=== PATIENT | female | born 1935 | race Caucasian/White ===

== ENCOUNTER → 2021-03-14 10:27 | Outpatient (REF) | payer MEDICARE, SELFPAY | LOC: ANHLAB 10:27 | PROVIDERS: PCP Internal Medicine; Visit Provider Nurse Practitioner | DX: D49.2 Neoplasm of unspecified behavior of bone, soft tissue, and skin (principal) | CPT/HCPCS: 88305 ==

== ENCOUNTER → 2021-05-01 07:29 | Outpatient (REF) | payer MEDICARE, SELFPAY | LOC: ANHLAB 07:29 | PROVIDERS: PCP Internal Medicine; Visit Provider Nurse Practitioner | DX: C44.42 Squamous cell carcinoma of skin of scalp and neck (principal) | CPT/HCPCS: 88305; 88331 ==

== ENCOUNTER 2022-01-30 07:00 | Outpatient (NON) | payer MEDICARE, SELFPAY | END 2022-01-30 07:01 | disposition home or self-care (01) | PROVIDERS: PCP Internal Medicine; Visit Provider Nurse Practitioner | DX: C44.42 Squamous cell carcinoma of skin of scalp and neck (principal) | CPT/HCPCS: 88305; 88342 ==

== ENCOUNTER 2022-02-26 10:02 | Outpatient (NON) | payer MEDICARE, SELFPAY | END 2022-02-26 10:03 | disposition home or self-care (01) | PROVIDERS: PCP Nurse Practitioner; Visit Provider Nurse Practitioner | DX: C44.42 Squamous cell carcinoma of skin of scalp and neck (principal) | CPT/HCPCS: 88305; 88331 ==

== ENCOUNTER 2022-05-24 18:28 | Emergency (ER) | payer MEDICARE, SELFPAY ==
--- NOTE | ~2022-05-24 | CT_ITS ---
Non-contrast Head CT History: Status post fall Technique: Axial non-contrast imaging of the brain was performed. Dose reduction technique was used on this scan by utilizing automated exposure control and iterative reconstruction technique. The dose -length product (DLP) was 605.33 mGy-cm. Findings: There is no evidence of intracranial hemorrhage, mass lesion, or acute infarct. Old left o ccipital lobe infarct noted. The ventricles and subarachnoid spaces are normal in size. The calvari um appears normal. The visualized paranasal sinuses and mastoid air cells are clear. Impression: No acute abnormality seen. Chronic left occipital lobe infarct. Reviewed, dictated and finalized at location . R INSPECTION MECHANIC Impression: No acute abnormality seen. Chronic left occipital lobe infarct.
--- NOTE | ~2022-05-24 | XR_ITS ---
EXAMINATION: XR knee LT min 4V DATE: 05/24/2022 20:30 INDICATION: Left knee pain TECHNIQUE: Four views of the left knee were obtained. COMPARISON: None. FINDINGS: Alignment is normal. No fracture or osteochondral lesion. There is [id number] tricomp artmental osteoarthritis of the knee. No joint effusion/synovitis. Soft tissues are unremarkable. IMPRESSION: 1. No acute osseous abnormality. Reviewed, dictated and finalized at location F. ANCE AND CONTROL SYSTEM ENGINEER
--- NOTE | ~2022-05-24 | XR_ITS ---
EXAMINATION: XR elbow LT 2V INDICATION: Left elbow pain TECHNIQUE: Two views of the left elbow are obtained. COMPARISON: None available FINDINGS: No fracture, dislocation, or subluxation. The bones, soft tissues, and joint spaces are nor mal. IMPRESSION: 1. No acute osseous abnormality. Reviewed, dictated and finalized at location F. INSPECTOR AND CENTER MARKER
--- NOTE | ~2022-05-24 | XR_ITS ---
EXAMINATION: XR knee RT min 4V DATE: 05/24/2022 20:30 INDICATION: Right knee pain TECHNIQUE: Four views of the right knee were obtained. COMPARISON: None. FINDINGS: Alignment is normal. No fracture or osteochondral lesion. There is tricompartmental osteoar thritis of the knee, moderate in the patellofemoral and medial compartments. No joint effusion/synovi tis. Soft tissues are unremarkable. IMPRESSION: 1. No acute osseous abnormality. Reviewed, dictated and finalized at location F. TH CONTROL TESTER
--- NOTE | ~2022-05-24 | XR_ITS ---
EXAMINATION: XR shoulder LT min 2V INDICATION: Left shoulder pain TECHNIQUE: Three views of the left shoulder are submitted. COMPARISON: None FINDINGS: Normal alignment. No fracture. There is mild osteoarthritis of the glenohumeral and acromio clavicular joints. Soft tissues are unremarkable. IMPRESSION: 1. No acute osseous abnormality. Reviewed, dictated and finalized at location F. OWN MACHINE OPERATOR
--- NOTE | ~2022-05-24 | CT_ITS ---
Noncontrast CT scan of the thoracic and lumbar spine CLINICAL HISTORY: Status post fall TECHNIQUE: Axial noncontrast imaging of the thoracic and lumbar spine was performed. Sagittal and cor onal reformatted images were constructed. Dose reduction technique was used on this scan by utilizing automated exposure control and iterative reconstruction technique. The dose-length product (DLP) was 1184.52 mGy-cm. Thoracic spine findings: There is no fracture or subluxation of the thoracic spine. Vertebral bodies maintain normal height and alignment. There are minimal degenerative disc changes in the thoracic spi ne. No definite spinal canal stenosis or cord compression identified. Paravertebral soft tissues are unremarkable. Lumbar spine findings: There is dextroscoliosis of the lumbar spine, with Phelps angle of 20 degrees. T here is mild rightward subluxation of L2 over L3. There is moderate degenerative disc narrowing at L2 -L3. At L1-L2, there is no definite disc bulge or herniation. No spinal canal stenosis. Probable moderate left neural foraminal narrowing. Right neural foramen preserved. At L2-L3, there is mild disc bulge and mild facet joint hypertrophy. No olegario spinal canal stenosis. There is probable moderate right neural foraminal narrowing. Left neural foramen preserved. At L3-L4, disc bulge and facet arthropathy result in mild central canal stenosis/thecal sac compressi on. There is moderate to advanced right neural foraminal narrowing. Left neural foramen preserved. At L4-L5, disc bulge and facet arthropathy are present. Probable mild thecal sac compression. Bilater al neural foramina may be minimally narrowed. At L5-S1, there is no disc bulge or herniation. No spinal canal stenosis or neural foraminal narrowin g. Paravertebral soft tissues are unremarkable. IMPRESSION: No acute abnormality in the thoracic or lumbar spine. Dextroscoliosis of the lumbar spine with mild rightward subluxation of L2 over L3. Mild degenerative spondylosis of the lumbar spine, as detailed above. Reviewed, dictated and finalized at [facility]. EY RODMAN
--- NOTE | ~2022-05-24 | CT_ITS ---
Noncontrast CT scan of the cervical spine Technique: Multiple contiguous axial [address] images of the cervical spine were obtained and rec onstructed in 2D sagittal and coronal planes on the acquisition scanner. Dose reduction technique was used on this scan by utilizing automated exposure control, adjustment of the mA and/or kV according to patient size. Clinical History: Pain Findings: No fracture identified. Minimal grade 1 anterolisthesis of C5 over C6 noted. There is moder ate to advanced degenerative disc narrowing at C6-C7. There is fusion across the left C2-C3 facet анна nt. There is advanced facet arthropathy on the left side at C3-C4 and C4-C5. There are mild facet анна nt degenerative changes throughout most of the remainder of the cervical spine. There is uncovertebra l degenerative change at C6-C7. No prevertebral soft tissue swelling. Impression: No acute fracture. Minimal grade 1 anterolisthesis of C5 over C6. Degenerative spondylosis, as above. Reviewed, dictated and finalized at [facility]. R PLANT SUPERINTENDENT Impression: No acute fracture. Minimal grade 1 anterolisthesis of C5 over C6. Degenerative spondylosis, as above.
--- NOTE | ~2022-05-24 | XR_ITS ---
EXAMINATION: XR hip LT 2V w AP pelvis INDICATION: Left hip pain TECHNIQUE: AP view the pelvis and two views of the left hip are obtained. COMPARISON: None available FINDINGS: Bone alignment is normal. There is no fracture. The soft tissues are unremarkable. IMPRESSION: 1. No acute osseous abnormality. Reviewed, dictated and finalized at location F. T GROWER
[2022-05-24 18:31] VITALS: BP 152/72; PULSE 100; RESP 14; TEMP 36.4; O2SAT 99
--- NOTE | 2022-05-24 22:58 | ED.FALL ---
HPI - Fall General Chief Complaint: Fall Stated Complaint: fall at [employer] Time Seen by Provider: 05/24/22 22:30 History of Present Illness HPI Narrative: 86-year-old female with a history of CHF, squamous cell carcinoma, hypertension, A-fib, multiple CVAs reports for evaluation after she had a mechanical fall today in the parking lot of [employer] 8 hours ago. Patient is here with her daughter who reports the patient was with her niece at the time of the fall. States the niece witnessed the fall and reported the patient tripped over the curb with her cane, fell backwards and landed on her back and left hip. Patient is currently complaining of bilateral knee pain, left hip pain, left shoulder, left elbow pain, back and neck pain. Patient denies chest pain, lightheadedness, shortness of breath, dizziness prior to fall. She is denying headache, vision changes, new onset focal numbness or weakness. Patient reports chronic bilateral lower extremity edema secondary to CHF. She reports residual weakness and sensation loss in her right lower extremity after a prior CVA. She is also reporting left upper extremity weakness and sensory deficits that is currently being worked up outpatient. Patient's daughter present he reports the patient is supposed to be ambulating with her walker, not a cane. Related Data Home Medications Medication Instructions Recorded Confirmed amlodipine 10 mg tablet 10 mg PO DAILY 03/14/21 atorvastatin 20 mg tablet 20 mg PO DAILY 03/14/21 furosemide 40 mg tablet 40 mg PO QAM 03/14/21 nitroglycerin 0.4 mg sublingual 0.4 mg sublingual Q5M PRN 03/14/21 tablet potassium chloride 20 mEq 20 meq PO DAILY 03/14/21 tablet,extended release warfarin PO 03/14/21 Allergies Allergy/AdvReac Type Severity Reaction Status Date / Time povidone-iodine Allergy Unknown Verified 05/01/21 07:27 [From [facility] Povidone Iodine] Review of Systems Review of Systems: CONSTITUTIONAL: Denies fever, chills EYES: Denies visual changes, redness, or discharge. ENT: Denies rhinorrhea, congestion, sore throat, or otalgia. CARDIOVASCULAR: Denies chest pain, palpitations, or edema. RESPIRATORY: Denies cough or dyspnea. GASTROINTESTINAL: Denies abdominal pain, nausea, vomiting, or diarrhea. GENITOURINARY: Denies dysuria or hematuria. SKIN: Denies rash or itching. MUSCULOSKELETAL: see HPI NEUROLOGIC: Denies headache, dizziness PSYCHIATRIC: Denies anxiety or depression. [facility] Past Medical History Medical History Cellulitis CHF (congestive heart failure) History of SCC (squamous cell carcinoma) of skin Hypertension Exam Narrative: GENERAL: Well-appearing, well-nourished, and in no acute distress. HEAD: Normocephalic, atraumatic. EYES: PERRLA and EOMI. ENT: Nares clear, no rhinorrhea or epistaxis. Mucous membranes moist. Oropharynx without tonsillar hypertrophy exudate or other lesions. NECK: Supple. No adenopathy or masses. CHEST: Clear to auscultation. No respiratory distress. No wheezes rales or rhonchi HEART: Regular rate and rhythm. No murmur heard. Normal peripheral pulses. ABDOMEN: Soft, nontender, nondistended, normal active bowel sounds. EXTREMITIES: Bilateral lower extremity pitting edema. Tenderness to palpation of bilateral knees, left elbow, left hip, left shoulder. Limited flexion of bilateral knees and left hip. Full range of motion of upper extremities. Strength diminished to right upper extremity. Sensation intact upper extremities. Patient able to wiggle toes on left foot. Sensation intact to left foot. She is unable to wiggle toes on right foot. Sensation diminished right foot. DP and radial pulses 2+. Midline tenderness to cervical, thoracic, lumbar spines. No step-offs appreciated. No crepitus to joints. No pelvic instability. No tenderness or crepitus to ribs. SKIN: Warm, dry, no rash. NEURO: No focal deficits. Alert
[2022-05-24] MEDS: ACETAMINOPHEN 325 MG TABLET 650 MG PO (23:25)
[2022-05-24 23:54] VITALS: BP 123/64; PULSE 81; RESP 18; O2SAT 99
--- NOTE | 2022-05-25 | PC.NURSE ---
Pt back from CT, resting in bed. Family at bedside, pt given new warm blanket
[2022-05-25 00:48] VITALS: BP 129/91; PULSE 78; RESP 18; O2SAT 98
== END 2022-05-25 00:49 | disposition home or self-care (01) ==
PROVIDERS: Emergency Provider Physician Assistant; PCP Internal Medicine
DX: M25.561 Pain in right knee (principal); M25.562 Pain in left knee; M25.512 Pain in left shoulder; M25.522 Pain in left elbow; M54.9 Dorsalgia, unspecified; M54.2 Cervicalgia; M25.552 Pain in left hip; W01.0XXA Fall on same level from slipping, tripping and stumbling without subsequent striking against object, initial encounter; I11.0 Hypertensive heart disease with heart failure; I50.9 Heart failure, unspecified; I48.91 Unspecified atrial fibrillation; Z86.73 Personal history of transient ischemic attack (TIA), and cerebral infarction without residual deficits; Z79.01 Long term (current) use of anticoagulants
CPT/HCPCS: 70450; 72125; 72128; 72131; 73030; 73070; 73502; 73564; 99284; A9270

== ENCOUNTER 2022-07-24 13:14 | Outpatient (NON) | payer MEDICARE, SELFPAY | END 2022-07-24 13:15 | disposition home or self-care (01) | LOC: ANHLAB 07-25 13:16 | PROVIDERS: PCP Internal Medicine; Visit Provider Nurse Practitioner | DX: C44.42 Squamous cell carcinoma of skin of scalp and neck (principal) | CPT/HCPCS: 88305; 88342 ==